=== PATIENT | female | born 1985 | race African-American/Black ===

== ENCOUNTER 2017-04-26 16:41 | Emergency (ER) | payer OTHER ==
[~2017-04-26] VITALS: Ht 157.5 cm; Wt 88.9 kg
[2017-04-26] MEDS ORDERED: IBUPROFEN 600600 M1 PO (17:03)
[2017-04-26] MEDS ORDERED: HYDROCODONE-AP1 EAC6 PO (17:14)
[2017-04-26] MEDS ORDERED: CLEOCIN HCL150 MG PO (17:14)
== END 2017-04-26 17:19 | disposition home or self-care (01) ==
LOC: ER 16:41
DX: K08.89 Other specified disorders of teeth and supporting structures (principal)

== ENCOUNTER 2017-06-17 03:55 | Emergency (ER) | payer OTHER ==
[~2017-06-17] VITALS: Ht 157.5 cm; Wt 88.9 kg
[~2017-06-17 03:55] MED LIST: CLEOCIN HCL150 MG PO; HYDROCODONE-AP1 EAC6 PO; IBUPROFEN 600600 M1 PO
[2017-06-17] MEDS ORDERED: NORCO 5-325 TA1 EACH PO (05:46)
[2017-06-17] MEDS ORDERED: AMOXICILLIN 50500 M1 PO (05:46)
[2017-06-17] MEDS ORDERED: PREDNISONE 20 M20 MG PO (05:47)
[2017-06-17] MEDS ORDERED: CLEOCIN HCL150 MG PO (06:00)
[2017-06-17 06:07] VITALS: BP 150/109
== END 2017-06-17 06:08 | disposition home or self-care (01) ==
LOC: ER 03:55
DX: J32.9 Chronic sinusitis, unspecified (principal); K04.7 Periapical abscess without sinus

== ENCOUNTER 2020-09-16 15:48 | Emergency (ER) | payer OTHER ==
[~2020-09-16] VITALS: Ht 157.5 cm; Wt 86.2 kg
[~2020-09-16 15:48] MED LIST changes: +AMOXICILLIN 50500 M1 PO; +NORCO 5-325 TA1 EACH PO; +PREDNISONE 20 M20 MG PO
== END 2020-09-16 18:11 | disposition home or self-care (01) ==
LOC: ER 15:48
DX: M54.5 Low back pain (principal); Z98.51 Tubal ligation status; V49.49XA Driver injured in collision with other motor vehicles in traffic accident, initial encounter; Y93.I9 Activity, other involving external motion; Y92.488 Other paved roadways as the place of occurrence of the external cause; Y99.8 Other external cause status